=== PATIENT | male | born 1945 ===

== ENCOUNTER 2017-12-26 06:58 | Day surgery (SDC) | payer MEDICARE, OTHER ==
[2017-12-19 07:31] VITALS: BMI 26.6
[2017-12-26 07:38] LABS: BASO # 0.03 K/mm3 (0.0-2.0); BASO % 0.6 % (0.0-3.0); EOS # 0.2 (0.0-0.7); EOS % 4.8 % (1.5-5.0); GRAN # 3.1 (1.4-6.5); GRAN % 62.5 % (50.0-68.0); HEMOGLOBIN 11.9 g/dL (14.0-18.0); LYMPH # 1.2 (1.2-3.4); LYMPH % 24.3 % (22.0-35.0); MEAN CELL VOLUME 88.4 fl (80.0-105.0); MEAN CORPUSCULAR HEMOGLOBIN 28.2 pg (25.0-35.0); MEAN CORPUSCULAR HGB CONC 31.9 g/dl (31.0-37.0); MEAN PLATELET VOLUME 11.2 fl (7.0-11.0); MONO # 0.4 (0.1-0.6); MONO % 7.8 % (1.0-6.0); RBC 4.22 10^6/uL (3.5-6.1); RED CELL DISTRIBUTION WIDTH 14.3 % (11.5-14.5)
[2017-12-26 07:48] LABS: BLOOD UREA NITROGEN 18 mg/dL (7-21); GFR AFRICAN-AMERICAN > 60; GFR NON-AFRICAN AMERICAN > 60; INR 1.11 (0.93-1.08); PARTIAL THROMBOPLASTIN TIME 31.4 Seconds (25.1-36.5); PROTHROMBIN TIME 12.8 SECONDS (9.4-12.5)
[2017-12-26 08:21] VITALS: RESP 18; TEMP 97.5
[2017-12-26] MEDS ORDERED: Lidocaine 2% Inj (20ml) ONE (10:12)
[2017-12-26] MEDS ORDERED: HEPARIN SODIUM/NS 1,000 ML IV ONE ×2 (10:13→10:14)
[2017-12-26] MEDS ORDERED: Midazolam 2 MG/2 ML VIAL ONE ×2 (10:13→10:40)
[2017-12-26] MEDS ORDERED: Nitroglycerin 50mg in D5W 0 MG/0 ML BOTTLE IV ONE (10:40)
--- NOTE | 2017-12-26 10:41 | CARD ---
APPROVED REPORT EKG Measurement Heart [id number] CT 152P32 [id number] <Conclusion> Normal sinus rhythm NSSTW changes
[2017-12-26] MEDS ORDERED: Sodium Chloride 0.9% 1,000 ML IV SCH (11:30)
[2017-12-26 16:01] VITALS: BP 164/94; PULSE 69; O2SAT 100
--- NOTE | 2017-12-26 20:34 | CARDCATH ---
PROCEDURE DATE: 12/26/2017 HISTORY: The patient is a 72-year-old male with a history of hypertension, who presents with chest pain. His stress test was abnormal. Because of this, cardiac catheterization was recommended. PROCEDURE: Left heart catheterization with coronary arteriography and left ventriculogram. The right femoral artery was cannulated with a 6-Swedish sheath. There were no complications. I performed moderate sedation, which included the presence of an independent trained observer that assisted in monitoring the patient's level of consciousness and physiologic status. After administration of Versed and fentanyl, my intra-service time was 15 minutes. The findings on catheterization revealed the left ventricle that contracted normally. Estimated ejection fraction of 60%. The posterior wall in an SW[place] left ventriculogram revealed good posterior wall motion. The coronary anatomy revealed diffuse calcification throughout its tree. The RCA was a dominant vessel and a large vessel and provided vessel to the posterior wall. The RCA was occluded in its proximal portion, which is chronic. The left main artery was unremarkable. The LAD revealed diffuse atherosclerosis without critical lesions. The diagonal vessels revealed intimal irregularities without critical lesions. The circumflex artery was a small artery with diffuse atherosclerosis without critical lesions. Manual compression was used to close the femoral artery site. The patient tolerated the procedure well. In summary, the procedure revealed single-vessel CAD with an occluded RCA. His anatomy reflected his nuclear studies. LV function was normal. Given these findings, we will discuss with the patient about possible angioplasty versus continued medical therapy. Garrick Gerardo MD
== END 2017-12-26 18:15 | disposition home or self-care (01) ==
LOC: CATH 06:58
PROVIDERS: ATTEND Internal Medicine Cardiovascular Disease
DX: I25.10 Atherosclerotic heart disease of native coronary artery without angina pectoris (principal); I10 Essential (primary) hypertension
CPT/HCPCS: 36415; 80048; 85025; 85610; 85730; 86850; 86900; 93005; 93458; 99152; C1769; C1887; C2629; J1644; J2250; J3010; J7030; J7040; Q9967

== ENCOUNTER 2018-01-02 07:04 | Day surgery (SDC) | payer MEDICARE, OTHER ==
[2017-12-19 07:31] VITALS: BMI 26.6
[2018-01-02] MEDS ORDERED: Phenylephrine 10 mg/ml Inj ONE (07:23)
[2018-01-02] MEDS ORDERED: Midazolam 2 MG/2 ML VIAL ONE ×2 (07:23→08:16)
[2018-01-02] MEDS ORDERED: HEPARIN SODIUM/NS 2,000 ML IV ONE (07:24)
[2018-01-02] MEDS ORDERED: Iohexol 350mgl/ml 50 ML ONE (07:24)
[2018-01-02] MEDS ORDERED: Nitroglycerin 50mg in D5W 0 MG/0 ML BOTTLE IV ONE (07:24)
[2018-01-02] MEDS ORDERED: Iodixanol 320 MG/ML 200 ML BOTTLE IV ONE (07:24)
[2018-01-02] MEDS ORDERED: Iodixanol 320 MG/ML 100 ML BOTTLE IV ONE (07:24)
[2018-01-02] MEDS ORDERED: Lidocaine 2% Inj (20ml) ONE (07:25)
[2018-01-02 07:46] LABS: BASO # 0.01 K/mm3 (0.0-2.0); BASO % 0.2 % (0.0-3.0); EOS # 0.1 (0.0-0.7); EOS % 2.8 % (1.5-5.0); GRAN # 3.32 (1.4-6.5); GRAN % 66.7 % (50.0-68.0); HEMOGLOBIN 12.3 g/dL (14.0-18.0); LYMPH # 1.1 (1.2-3.4); LYMPH % 22.3 % (22.0-35.0); MEAN CELL VOLUME 86.8 fl (80.0-105.0); MEAN CORPUSCULAR HGB CONC 32.3 g/dl (31.0-37.0); MEAN PLATELET VOLUME 10.7 fl (7.0-11.0); MONO # 0.4 (0.1-0.6); RBC 4.39 10^6/uL (3.5-6.1); RED CELL DISTRIBUTION WIDTH 14.3 % (11.5-14.5)
[2018-01-02 07:54] LABS: BLOOD UREA NITROGEN 14 mg/dL (7-21); CALCIUM 9.4 mg/dL (8.4-10.5); GFR AFRICAN-AMERICAN > 60; GFR NON-AFRICAN AMERICAN > 60
[2018-01-02 07:55] LABS: INR 1.14 (0.93-1.08); PARTIAL THROMBOPLASTIN TIME 31.7 Seconds (25.1-36.5); PROTHROMBIN TIME 13.1 SECONDS (9.4-12.5)
[2018-01-02] MEDS ORDERED: Sodium Chloride 0.9% 1,000 ML IV SCH (10:00)
--- NOTE | 2018-01-02 18:54 | CARD ---
APPROVED REPORT EKG Measurement Heart [id number] SC 168P38 [id number] <Conclusion> Sinus bradycardia Cannot rule out Inferior infarct, age undetermined Abnormal ECG
--- NOTE | 2018-01-02 19:57 | CARDCATH ---
PROCEDURE DATE: 01/02/2018 CARDIAC CATHETERIZATION AND PTCA HISTORY: The patient is a 72-year-old male with a documented occluded RCA which is chronic. The patient presents for angioplasty of a chronically occluded RCA. Risks, benefits were discussed with the patient and family in detail. The patient understands the procedure, understands the risks and was able to have all his questions answered. PROCEDURE: Coronary arteriography followed by percutaneous transluminal coronary angioplasty of the right coronary artery. The right femoral artery was cannulated with a 6-[place] sheath. There were no complications. The findings on catheterization revealed a chronically occluded right coronary artery in its proximal portion. The aorta as well as the femoral arteries were markedly tortuous. The patient was started on intravenous Angiomax. The sheath was exchanged for a long sheath to strain the right femoral and iliac arteries. Using a variety of guiding catheters, good support was not obtained. A guide liner was then used for better support. The wire was then brought down and crossed the total occlusion. Attempt at pushing a 2.0 balloon across the chronically occluded vessel could not be accomplished despite multiple attempts with multiple techniques. After an hour of attempting the procedure, repeat coronary arteriography revealed no change in this chronic occlusion. The patient tolerated the procedure well. Angio-Seal was used to close the femoral artery site. In summary, the procedure was unsuccessful for percutaneous transluminal coronary angioplasty and attempt at crossing a chronically occluded right coronary artery. Given these findings, the patient will be treated medically. Garrick Gerardo MD
[2018-01-03 00:45] VITALS: RESP 18; TEMP 98
[2018-01-03 06:24] LABS: BASO # 0.01 K/mm3 (0.0-2.0); BASO % 0.1 % (0.0-3.0); EOS # 0.3 (0.0-0.7); EOS % 3.8 % (1.5-5.0); GRAN # 4.78 (1.4-6.5); GRAN % 70.7 % (50.0-68.0); HEMOGLOBIN 11.8 g/dL (14.0-18.0); LYMPH # 1.2 (1.2-3.4); LYMPH % 17.7 % (22.0-35.0); MEAN CELL VOLUME 87.7 fl (80.0-105.0); MEAN CORPUSCULAR HEMOGLOBIN 27.8 pg (25.0-35.0); MEAN CORPUSCULAR HGB CONC 31.7 g/dl (31.0-37.0); MEAN PLATELET VOLUME 11.1 fl (7.0-11.0); MONO # 0.5 (0.1-0.6); MONO % 7.7 % (1.0-6.0); RBC 4.24 10^6/uL (3.5-6.1); RED CELL DISTRIBUTION WIDTH 14.4 % (11.5-14.5); WHITE BLOOD COUNT 6.8 10^3/ul (4.5-11.0)
[2018-01-03 06:38] LABS: BLOOD UREA NITROGEN 15 mg/dL (7-21); CALCIUM 9.1 mg/dL (8.4-10.5); GFR AFRICAN-AMERICAN > 60; GFR NON-AFRICAN AMERICAN > 60
[2018-01-03 07:04] VITALS: BP 132/81; O2SAT 98
--- NOTE | 2018-01-03 10:41 | CARD ---
APPROVED REPORT EKG Measurement Heart [id number] UT 156P42 [id number] <Conclusion> Normal sinus rhythm Cannot rule out Inferior infarct, age undetermined Abnormal ECG
[2018-01-03 11:04] VITALS: PULSE 74
--- NOTE | 2018-01-03 15:03 | PN ---
DATE: 01/03/2018 SUBJECTIVE: The patient is without complaints. No shortness of breath. No chest pain. PHYSICAL EXAMINATION VITAL SIGNS: Blood pressure is 132/81, the heart rates in the 60s. NECK: Negative JVD. LUNGS: Without rales. HEART: Reveals S1, S2. EXTREMITIES: Without edema groin site is stable. LABORATORY DATA: Hemoglobin is 11.8. Chemistries: BUN and creatinine are unremarkable. IMPRESSION: 1. Status post attempted percutaneous transluminal coronary angioplasty of a chronically occluded right coronary artery. 2. Single vessel coronary artery disease. 3. Hypercholesterolemia. 4. Hypertension. PLAN: Given these findings, the patient's single vessel CAD of a chronically occluded RCA will be treated medically. Follow up and instructions have been given to the patient. The patient will be following with next week in his office. Garrick Gerardo MD
== END 2018-01-03 11:28 | disposition home or self-care (01) ==
LOC: CATH 07:04 → 2RNO 09:46 → CATH 01-03 11:28
PROVIDERS: ATTEND Internal Medicine Cardiovascular Disease
DX: I25.10 Atherosclerotic heart disease of native coronary artery without angina pectoris (principal); I25.82 Chronic total occlusion of coronary artery; E78.00 Pure hypercholesterolemia, unspecified; I10 Essential (primary) hypertension
CPT/HCPCS: 36415 ×2; 80048 ×2; 85025 ×2; 85610; 85730; 86850; 86900; 93005; 99152; 99153; C1725 ×2; C1760; C1769 ×3; C1887 ×7; C2629; C9600; J0583; J1644; J2250; J3010; J7040 ×2; Q9967